=== PATIENT | female | born 1950 | race Caucasian/White ===

== ENCOUNTER 2021-09-30 06:51 | Emergency (ER) | payer OTHER ==
[~2021-09-30] VITALS: Ht 162.6 cm; Wt 74.8 kg
[2021-09-30] MEDS ORDERED: DEXAMETHASONE SOD PHOS 10 MG/1 ML VIAL IM ONE (07:30)
[2021-09-30] MEDS ORDERED: KETOROLAC TROMETHAMINE 60 MG/2 ML VIAL IM ONE (07:30)
== END 2021-09-30 07:30 | disposition home or self-care (01) ==
LOC: ER 06:59
DX: M54.40 Lumbago with sciatica, unspecified side (principal); I10 Essential (primary) hypertension
CPT/HCPCS: 99282; J1100; J1885

== ENCOUNTER 2021-10-09 15:43 | Observation (INO) | payer OTHER ==
[~2021-10-09] VITALS: Ht 162.6 cm; Wt 74.8 kg
[2021-10-09] MEDS ORDERED: KETOROLAC TROMETHAMINE 30 MG/ML VIAL IV STA (16:12)
[2021-10-09] MEDS ORDERED: DEXAMETHASONE SOD PHOS 10 MG/1 ML VIAL IV ONE (16:15)
[2021-10-09 16:27] LABS: BASOPHILS % 0.6 % (0.0-1.0); EOSINOPHILS % 0.3 % (0.0-6.0); HEMATOCRIT 33.1 % (34.2-44.1); HEMOGLOBIN 10.9 g/dL (12.0-16.0); LYMPHOCYTES # (AUTO) 0.9 (1.0-3.2); LYMPHOCYTES % 25.7 % (18.0-39.1); MEAN CORPUSCULAR HEMOGLOBIN 32.2 pg (28-32); MEAN CORPUSCULAR HGB CONC 32.9 g/dL (31-35); MEAN CORPUSCULAR VOLUME 97.6 fL (81-99); MONOCYTES # (AUTO) 0.3 (0.2-0.8); MONOCYTES % 8.2 % (4.4-11.3); NEUTROPHILS # (AUTO) 2.3 (2.1-6.9); NEUTROPHILS % 64.9 % (38.7-80.0); PLATELET COUNT 117 x10e3/uL (140-360); RED BLOOD COUNT 3.39 x10e6/uL (3.6-5.1); RED CELL DISTRIBUTION WIDTH 12.2 % (11.7-14.4)
[2021-10-09 16:29] LABS: CLARITY,URINE HAZY (CLEAR); COLOR,URINE YELLOW (YELLOW); KETONES,URINE NEGATIVE (NEGATIVE); LEUKOCYTE ESTERASE ,URINE NEGATIVE (NEGATIVE); NITRITE,URINE NEGATIVE (NEGATIVE); PROTEIN,URINE DIPSTICK NEGATIVE (NEGATIVE); URINE UROBILINOGEN 0.2 mg/dL (0.2 - 1)
[2021-10-09 16:32] LABS: BACTERIA,URINE FEW /HPF; EPITHELIAL CELLS,URINE MODERATE /LPF; RBC,URINE 0-5 /HPF (0-5); WBC,URINE (MAN) 0-5 /HPF (0-5)
[2021-10-09 16:46] LABS: ALBUMIN 3.7 g/dL (3.5-5.0); ALBUMIN/GLOBULIN RATIO 1.1 (0.8-2.0); ANION GAP 12.5 mmol/L (8-16); CALCIUM 10.1 mg/dL (8.4-10.2); CREATININE, SERUM 0.73 mg/dL (0.57-1.11); POTASSIUM 3.5 mmol/L (3.5-5.1)
[2021-10-09] MEDS ORDERED: Morphine 2mg Syringe 2 MG/ML SYR IV PRN (17:00)
[2021-10-09] MEDS: ONDANSETRON HCL INJ 2MG/ML 2ML 2 MG/ML VIAL IV PRN ×2 (19:47→23:39)
[2021-10-09 20:37] VITALS: BP 159/81
[2021-10-09] MEDS ORDERED: ALBUTEROL SULFATE HFA 8GM INHALATION AEROSOL INH PRN (21:30)
[2021-10-09] MEDS ORDERED: EQUETRO100 MG PO (21:35)
[2021-10-09] MEDS ORDERED: TRAZODONE HCL50 MG PO (21:35)
[2021-10-09] MEDS ORDERED: BREO ELLIPTA 21 EACH IH (21:35)
[2021-10-09] MEDS ORDERED: PREGABALIN100 MG PO (21:35)
[2021-10-09] MEDS ORDERED: PROMETHAZINE HC25 M1 PO (21:35)
[2021-10-09] MEDS ORDERED: LEVOTHYROXINE100 MCG PO (21:35)
[2021-10-09] MEDS ORDERED: ESIDRIX25 MG PO (21:35)
[2021-10-09] MEDS ORDERED: LEFLUNOMIDE20 MG PO (21:35)
[2021-10-09] MEDS ORDERED: SIMVASTATIN40 MG PO (21:35)
[2021-10-09] MEDS ORDERED: METHOCARBAMOL500 MG PO (21:35)
[2021-10-09] MEDS ORDERED: PROVENTIL HFA6.7 GM IH (21:35)
[2021-10-09] MEDS ORDERED: NIFEDIAC CC60 MG PO (21:35)
[2021-10-09] MEDS ORDERED: ACETAMINOPHEN-1 EAC4 PO (21:35)
[2021-10-09] MEDS ORDERED: MOVANTIK25 MG PO (21:35)
[2021-10-09] MEDS ORDERED: OMEPRAZOLE40 MG PO (21:35)
[2021-10-09] MEDS ORDERED: SCOPOLAMINE1 EACH TOP (21:35)
[2021-10-09] MEDS ORDERED: ESTRADIOL0.5 MG PO (21:35)
[2021-10-10 00:37] VITALS: BP 175/81
[2021-10-10 04:00] VITALS: BP 176/82
[2021-10-10 05:36] LABS: BASOPHILS % 0.5 % (0.0-1.0); HEMATOCRIT 32.5 % (34.2-44.1); LYMPHOCYTES # (AUTO) 1.3 (1.0-3.2); LYMPHOCYTES % 31.7 % (18.0-39.1); MEAN CORPUSCULAR HEMOGLOBIN 32.6 pg (28-32); MEAN CORPUSCULAR HGB CONC 33.8 g/dL (31-35); MEAN CORPUSCULAR VOLUME 96.4 fL (81-99); MONOCYTES # (AUTO) 0.3 (0.2-0.8); MONOCYTES % 7.5 % (4.4-11.3); NEUTROPHILS # (AUTO) 2.4 (2.1-6.9); NEUTROPHILS % 59.8 % (38.7-80.0); PLATELET COUNT 116 x10e3/uL (140-360); RED BLOOD COUNT 3.37 x10e6/uL (3.6-5.1)
[2021-10-10 05:56] LABS: ANION GAP 11.7 mmol/L (8-16); CALCIUM 9.9 mg/dL (8.4-10.2); CREATININE, SERUM 0.73 mg/dL (0.57-1.11); POTASSIUM 3.7 mmol/L (3.5-5.1)
[2021-10-10] MEDS: BUSPIRONE HCL 5 MG TAB PO SCH ×2 (05:56→08:51)
[2021-10-10] MEDS: ONDANSETRON HCL INJ 2MG/ML 2ML 2 MG/ML VIAL IV PRN (07:07)
[2021-10-10] MEDS ORDERED: LEVOTHYROXINE SODIUM 100 MCG TAB PO SCH (07:30)
[2021-10-10] MEDS ORDERED: PANTOPRAZOLE SOD 40 MG TABEC PO SCH (07:30)
[2021-10-10 07:49] VITALS: BP 161/72
[2021-10-10 08:40] VITALS: BP 161/72
[2021-10-10] MEDS ORDERED: NIFEDIPINE CR 30 MG TAB PO SCH (09:00)
[2021-10-10] MEDS ORDERED: METOPROLOL SUCCINATE 25 MG TAB XL PO SCH (09:00)
[2021-10-10] MEDS ORDERED: ACETAMINOPHEN 325 MG TAB PO PRN (10:00)
[2021-10-10] MEDS ORDERED: HYDRALAZINE HCL 20 MG/ML VIAL IV PRN ×2 (10:00→11:30)
[2021-10-10] MEDS ORDERED: ZOLPIDEM TARTRATE 5 MG TAB PO PRN (10:00)
[2021-10-10] MEDS ORDERED: LOSARTAN POTASSIUM 100 MG TAB PO SCH ×2 (10:30→12:00)
[2021-10-10 11:43] VITALS: BP 161/82
[2021-10-10] MEDS ORDERED: LOSARTAN POTAS100 MG PO (12:01)
[2021-10-10] MEDS ORDERED: SIMVASTATIN 40 MG TAB PO SCH (21:00)
[2021-10-10] MEDS ORDERED: TRAZODONE HCL 50 MG TAB PO SCH (21:00)
== END 2021-10-10 13:41 | disposition home or self-care (01) ==
LOC: ER 15:51 → ERHOLD 16:58 → MED/SURG 19:52
PROVIDERS: ADMIT Internal Medicine; ATTEND Internal Medicine
DX: M51.17 Intervertebral disc disorders with radiculopathy, lumbosacral region (principal); I10 Essential (primary) hypertension; F31.9 Bipolar disorder, unspecified; K21.9 Gastro-esophageal reflux disease without esophagitis; F41.9 Anxiety disorder, unspecified; E03.9 Hypothyroidism, unspecified; Z20.822 Contact with and (suspected) exposure to COVID-19
CPT/HCPCS: 36415; 80048; 80053; 81001; 85025; 99284; G0378; J1100; J1885; J2270; J2405; U0002